=== PATIENT | female | born 1960 | race Caucasian/White ===

== ENCOUNTER 2024-10-03 18:20 | Inpatient (IN) | payer MEDICAID ==
[~2024-10-03] VITALS: Ht 161.3 cm; Wt 67.5 kg
--- NOTE | 2024-10-03 18:48 | Physician Documentation ---
History of Present Illness ~ Chief Complaint: Cold, cough & congestion Stated Complaint: COUGH Time Seen by MD: 19:48 HPI This is a 64-year-old female with history of CABG who presents with proximally 2-3 weeks of persistent chest congestion and cough shortness of breath, patient reports shortness of breath does increase with activity, patient reports that she has been sleeping with extra pillows under head as lying flat causes her cough to worsen. Patient reports that she is a current every day smoker until that she possibly has a emphysema. Patient reports no nasal congestion or fever. Patient also endorses that she has moved here recently from [place] and does not have a doctor. She states she is supposed to be taking Xarelto for history of PE, carvedilol, lisinopril, metformin, Lasix, aspirin 81, Jardiance and also an inhaler for albuterol. She states that she ran out of her medications however her roommate has similar medications so she has been taking them in the meantime. She has no med list and does not know the dosing of her medications. She continues to smoke. She denies chest pain but does state her shortness of breath that has significant to the point where she can not walk from one room to the next. Medication Reconciliation Allergies: Coded Allergies: No Known Allergies (Unverified , 10/03/24) Review of Systems ROS All review of systems negative except as per HPI Physical Exam Vital Signs: Temperature: 97.6, Source: Temporal, Heart Rate: 92, Respiratory Rate: 15, BP: 164/109, Pulse Oximetry: 99, Weight: 67.500 Physical Exam General: Patient is awake, alert, oriented x4 in no acute distress Head: Normocephalic and atraumatic. Eyes: Conjunctival normal. EOMI. PERRL. ENT: Mucous membranes moist. Neck: Supple, trachea is midline. Chest: Clear to auscultation bilaterally without rales, rhonchi, or wheezes. There is no accessory muscle use or retractions. Cardiac: RRR without murmurs, gallops, or rubs. Abd: Soft, nondistended, nontender, with normoactive bowel sounds. No guarding, rebound, or rigidity. Extremities: Normal strength. Normal range of motion. No deformities or edema. Chronic stasis changes noted bilaterally and bypass scar noted in left lower extremity Progress Results/Orders Results/Orders Orders - YEH,MAHAD G MD Heparin 25,000 Unit/250ml Bag (Heparin 2 (10/03/24 20:25) Heparin 10,000 Unit/Ml 1ml (Heparin 10,0 (10/03/24 20:25) Cbc/Diff (10/05/24 03:00) Cbc/Diff (10/06/24 03:00) Cbc/Diff (10/07/24 03:00) Cbc/Diff (10/08/24 03:00) Cta Chest Pe (10/03/24 20:23) Page Hospitalist (10/03/24 20:25) Fill Out Med Reconciliation (10/03/24 20:25) Cardiac Ptt (10/04/24 02:45) Completed Orders - MAHAD YEH MD Pt Inr (10/03/24 20:23) PTT (10/03/24 20:23) Cta Chest Pe (10/03/24 20:23) Heparin 10,000 Unit/Ml 1ml (Heparin 10,0 (10/03/24 20:45) Message To Nursing (10/03/24 20:45) Iohexol 350mg/Ml 100ml (Omnipaque 350mg/ (10/03/24 20:56) Medications Received in ER Medications (Trade) Dose Ordered Sig/Marya Route PRN Reason Start Time Stop Time Status Last Admin Dose Admin Heparin Sodium/ Dextrose 250 ml @ 8 mls/hr [id number] PRN IV TO MAINTAIN PTT WITHIN RANGE 10/03/24 20:25 10/03/24 23:12 8 MLS/HR (heparin 10,000 unit/ml 1ml inj) 4,000 units ONCE ONCE IV 10/03/24 20:45 10/03/24 20:46 DC 10/03/24 23:12 4,000 UNITS Non-Formulary Medication 1 each ONCE ONCE IV 10/03/24 20:45 10/03/24 20:46 DC 10/03/24 20:45 1 EACH Vital Signs 10/03/24 10/03/24 18:41 20:38 Temp 97.6 Pulse 92 92 Resp 15 22 B/P (MAP) 164/109 162/105 (124) Pulse Ox 99 97 O2 Flow Rate 0 Laboratory Tests Test 10/03/24 19:15 10/03/24 20:58 10/03/24 20:59 White Blood Count 8.2 Red Blood Count 5.65 H Hemoglobin 16.4 H Hematocrit 49.2 H Mean Corpuscular Volume 87.0 Mean Corpuscular Hemoglobin 29.0 Mean Corpuscular Hemoglobin Concent 33.3 Red Cell Distribution Width 14.7 H Platelet Count 217 Mean Platelet Volume 9.1 Neutrophils (%) (Auto) 61.8 Lymphocytes (%) (Auto) 23.1 Monocytes (%) (Auto) 11.7 Eosinophils (%) (Auto) 2.6 Basophils (%) (Auto) 0.8 Neutrophils # (Auto) 5.1 Lymphocytes # (Auto) 1.9 Monocytes # (Auto) 1.0 H Eosinophils # (Auto) 0.2 Basophils # (Auto) 0.1 CBC Comment Sodium Level 136 Potassium Level 4.1 Chloride Level 102 Carbon Dioxide Level 26.8 Anion Gap 7 L Blood Urea Nitrogen 14 Creatinine 0.94 H Estimated GFR/1.73 m2 60 BUN/Creatinine Ratio 14.9 Glucose Level 187 H Hemoglobin A1c 9.2 H Calcium Level 9.5 Total Bilirubin 0.7 Aspartate Amino Transf (AST/SGOT) 18 Alanine Aminotransferase (ALT/SGPT) 26 Alkaline Phosphatase 137 H Troponin I High Sensitivity 552 *H Pro-B-Type Natriuretic Peptide 1194 H Total Protein 8.4 H Albumin 3.8 Globulin 4.6 H Albumin/Globulin Ratio 0.8 L Chemistry Comments Prothrombin Time 11.0 INR International Normalized Ratio 1.1 Activated Partial Thromboplast Time 28 Coagulation Comments Magnesium Level 1.8 EKG/XRAY/CT/US/VASC/MRI EKG : Additional Comment EKG interpreted by myself shows time of 184, rate 87, sinus rhythm, normal axis , no ST changes Repeat EKG interpreted by myself shows time of 2016, rate 84, sinus rhythm, normal axis, no ST changes Chest X-Ray : Additional Comments Exam: CHEST,TWO VIEWS CHEST RADIOGRAPH Indication: shortness of breath Technique: Frontal and lateral view of the chest was obtained Comparison: None FINDINGS: Lines and Tubes: AICD Lungs: No pulmonary infiltrates or edema. Pleura: No effusion. No pneumothorax. Cardiomediastinal contours: Mild cardiomegaly. Bones: Unremarkable IMPRESSION: No evidence of acute disease. Mild cardiomegaly. Medical Decision Making Findings MSE performed in triage and patient returned to ED lobby by nursing staff Patient presented to the emergency room with chief complaint of cough. Differentials include but are not limited to viral syndrome, pneumonia, pulmonary embolism, CHF, reflux therefore emergent labs and imaging indicated. Labs show elevated troponins and heparin has been initiated. Given patient's history of pulmonary embolism and noncompliance with Xarelto CTA has been ordered. Initial and repeat EKG shows no ST elevations and no changes. Departure Admitted to Inpatient Unit: yes, to hospitalist Impression: Primary Impression: NSTEMI (non-ST elevated myocardial infarction) Additional Impression: Noncompliance with medications Referrals: NO PRIMARY CARE PROVIDER (PCP) Signature Scribe Signature: No scribe Attestation: The note accurately reflects work and decisions made by me.Mahad Yeh MD 10/04/24 01:56 MARCO FABIAN October 03, 2024 18:48 MAHAD YEH MD October 03, 2024 19:59
--- NOTE | 2024-10-03 18:50 | ELECTROCARDIOGRAPH REPORT ---
[facility] Test Date: 2024-10-03 Test Time: 18:46:43 Pat Name: KYLE MORA Department: [facility]-ER Patient ID: [id number] Room: [place] [address] Gender: F Manager Product: : 1960 Requested By: MARCO FABIAN Order Number: [id number] Reading MD: Dr. Wiley Pugh Measurements Intervals [place] Rate: 87 P: 157 CO: 94 QRS: 24 QRSD: 118 T: 78 QT: 470 QTc: 566 Interpretive Statements Sinus or ectopic atrial rhythm Ventricular premature complex Short CO interval Nonspecific intraventricular conduction delay Inferior infarct, old Abnormal lateral Q waves Probable anteroseptal infarct, recent Baseline wander in lead(s) V3,V4,V5 Electronically Signed On 10-06-2024 11:03:[address] Wiley Pugh Please click the below link to view image of tracing.
--- NOTE | 2024-10-03 19:15 | RADIOLOGY REPORT ---
CHEST RADIOGRAPH Indication: shortness of breath Technique: Frontal and lateral view of the chest was obtained Comparison: None FINDINGS: Lines and Tubes: AICD Lungs: No pulmonary infiltrates or edema. Pleura: No effusion. No pneumothorax. Cardiomediastinal contours: Mild cardiomegaly. Bones: Unremarkable IMPRESSION: No evidence of acute disease. Mild cardiomegaly.
[2024-10-03 19:48] LABS: BASOPHILS # (AUTO) 0.1 X10'3 (0-0.2); BASOPHILS % (AUTO) 0.8 % (0-1); EOSINOPHILS # (AUTO) 0.2 X10'3 (0-0.9); EOSINOPHILS % (AUTO) 2.6 % (0-6); HEMATOCRIT 49.2 % (35.0-45.0); HEMOGLOBIN 16.4 g/dl (12.0-16.0); LYMPHOCYTES # (AUTO) 1.9 X10'3 (1.1-4.8); LYMPHOCYTES % (AUTO) 23.1 % (21-51); MEAN CORPUSCULAR HGB CONC 33.3 g/dL (33.0-36.5); MEAN PLATELET VOLUME 9.1 FL (7.4-10.4); MONOCYTES % (AUTO) 11.7 % (2-12); NEUTROPHILS # (AUTO) 5.1 X10'3 (1.8-7.7); NEUTROPHILS % (AUTO) 61.8 % (42-75); PLATELET COUNT 217 X10'3 (140-440); RED BLOOD COUNT 5.65 X10'6 (4.20-5.60); RED CELL DISTRIBUTION WIDTH 14.7 % (11.5-14.5); WHITE BLOOD COUNT 8.2 X10'3 (4.5-11.0)
[2024-10-03 20:04] LABS: ALANINE AMINOTRANSFERASE 26 U/L (12-78); ALBUMIN 3.8 G/DL (3.4-5.0); ALBUMIN/GLOBULIN RATIO 0.8 (1.1-1.5); ALKALINE PHOSPHATASE 137 IU/L (46-116); ANION GAP 7 (8-16); ASPARTATE AMINO TRANSFERASE 18 U/L (10-37); BILIRUBIN,TOTAL 0.7 MG/DL (0.1-1.0); BLOOD UREA NITROGEN 14 MG/DL (7-18); BUN/CREATININE RATIO 14.9 (10.0-20.0); CALCIUM 9.5 MG/DL (8.5-10.1); CHLORIDE 102 MMOL/L (99-107); CREATININE 0.94 MG/DL (0.40-0.90); GLUCOSE 187 MG/DL (70-104); POTASSIUM 4.1 MMOL/L (3.5-5.1); SODIUM 136 MMOL/L (135-145); TOTAL CARBON DIOXIDE 26.8 MMOL/L (24-32); TOTAL PROTEIN 8.4 G/DL (6.4-8.2); eCRCL 50 ML/MIN; eGFR 60 ML/MIN
[2024-10-03 20:11] LABS: PRO BRAIN NATRIURETIC PEPTIDE 1194 PG/ML (0-125)
[2024-10-03] MEDS ORDERED: heparin 10,000 units/1 ML INJ IV ONE (20:25)
[2024-10-03] MEDS ORDERED: heparin 10,000 units/1 ML INJ IV PRN (20:25)
[2024-10-03] MEDS: MESSAGE TO NURSING IV ONE (20:45)
[2024-10-03] MEDS ORDERED: iohexol 350MG/ML 100ml bottle IV ONE (20:56)
[2024-10-03 21:26] LABS: APTT 28 SECONDS (22-32); INR 1.1 INR
--- NOTE | 2024-10-03 21:43 | RADIOLOGY REPORT ---
CTA Chest with intravenous contrast INDICATION: h/o PE with SOB COMPARISON: None TECHNIQUE: Multidetector spiral CTA of the chest was performed of the chest with intravenous contrast . PULMONARY ANGIOGRAPHY PROTOCOL was utilized using a bolus-tracking technique centered on the main p ulmonary artery. Axial, coronal and sagittal multiplanar and MIP reformats were performed. Radiation Dose : 1. Chest: CTDI volume is mGy. Dose-length product is mGy*cm The dose indicators for CT are the volume Computed Tomography (CT) Dose Index (CTDIvol) and the Dose Length Product (DLP), and are measured in units of mGy and mGy-cm, respectively. These indicators are not patient dose, but values generated from the CT scanner acquisition factors. The report includes radiation exposure data for exposures received during this examination. Findings: Pulmonary artery: No evidence of pulmonary embolism. Lower neck: Unremarkable. Lungs: No focal consolidation. No pulmonary edema. Subsegmental atelectasis noted in the lingula and left lower lobe. Pleura: No pleural effusion or pneumothorax. Heart/Vascular Structures: Mild cardiomegaly. No pericardial effusion. Unremarkable thoracic aorta. A ICD noted Mediastinum / Lymph Nodes: Unremarkable. No lymphadenopathy. Musculoskeletal: No acute osseous abnormality. Soft tissues: Unremarkable. Visualized Upper abdomen: Unremarkable. IMPRESSION: No evidence of pulmonary embolism.
[2024-10-03] MEDS ORDERED: mag hydrox/Alum hydrox/simeth 30ml oral suspension PO PRN (22:10)
[2024-10-03] MEDS ORDERED: magnesium sulf-water 4G/100mL 100 ML IV PRN (22:10)
[2024-10-03] MEDS ORDERED: ondansetron/PF 4mg/2ml inj IV PRN (22:10)
[2024-10-03] MEDS ORDERED: magnesium hydroxide 30ml (MOM) UD suspension PO PRN (22:10)
[2024-10-03] MEDS ORDERED: magnesium sulf-water 2g/50mL 50 ML IV PRN (22:10)
[2024-10-03] MEDS ORDERED: acetaminophen 325mg tablet PO PRN (22:10)
[2024-10-03] MEDS ORDERED: potassium Cl 20 mEq SR tablet PO PRN ×2 (22:10)
[2024-10-03] MEDS ORDERED: magnesium Cl slow-release 64mg tablet PO PRN (22:10)
[2024-10-03] MEDS ORDERED: potassium Cl 40MEQ/1/2NS 520ml 520 ML IV PRN (22:10)
[2024-10-03] MEDS: magnesium sulf-water 2g/50mL 50 ML IV ONE (23:03)
[2024-10-03 23:12] LABS: HEMOGLOBIN A1C 9.2 % (4.5-6.2)
[2024-10-03] MEDS: heparin 25,000 UNIT/250ml bag 250 ML IV PRN (23:12)
[2024-10-03] MEDS: heparin 10,000 units/1 ML INJ IV ONE (23:12)
--- NOTE | 2024-10-04 01:12 | HISTORY AND PHYSICAL-Residence ---
History & Physical Providers to CC Resident Creating Document: KO GANN, LARISSA ~ History of Present Illness Reason for Admit\Complaint: NSTEMI History of Present Illness This is a 64-year-old female with past medical history of DVT, diabetes, history of CABG 10 years ago, history of defibrillator placement 10 years ago, CHF came to the ER with a chief complaint of shortness of breadth. She reports with the shortness of breath increases with activity, she usually sleeps with a pillow. She also has a cough which was ongoing for about a month, not able to cough up the secretions. Denies any fever or nasal congestion. Her friend who she is living with is also sick with cough and cold. Denies chest pain, palpitations, lightheadedness, leg swellings. She moved to [place] about a month ago, was in compliant with her medications. Medications include Xarelto, carvedilol, lisinopril, metformin, aspirin, Jardiance. Patient has been out of these medications, has not been taking Xarelto since February. Allergies: Coded Allergies: No Known Allergies (Unverified , 10/03/24) Past Medical History Past Medical History History of CAD s/p CABG 10 years ago Defibrillator placed 10 years ago Type 2 diabetes mellitus History of DVT Past Surgical History Surgical History Comment History of CABG History of appendicectomy History of C-sections Past Social History Social History Comment She has been smoking since the age of 14 years, smokes about more than half pack a day Denies any history of alcohol use Uses marijuana once in a while Lives with her friend currently, moved to [place] about one month ago ROS Eyes: Denies: no symptoms reported, see HPI, pain, discharge, blurred vision, double vision, itching, photophobia, redness, tearing, other ENT: Denies: no symptoms reported, see HPI, ear pain, ear bleeding, ear discharge, hearing loss, ear ringing, nose pain, nose bleeding, nose congestion, nose discharge, throat pain, throat swelling, voice change, mouth pain, mouth bleeding, mouth swelling, other Respiratory: Reports: cough, shortness of breath Cardiovascular: Denies: no symptoms reported, see HPI, chest pain, left arm pain, diaphoresis, lightheadedness, syncope, edema, palpitations, irregular heart rate, other Gastrointestinal: Denies: no symptoms reported, see HPI, abdomen distended, abdominal pain, nausea, vomiting, diarrhea, constipated, melena, hematemesis, hematochezia, rectal bleeding, rectal pain, dysphagia, poor appetite, poor fluid intake, other Genitourinary: Denies: no symptoms reported, see HPI, burning, discharge, dysuria, frequency, flank pain, hematuria, incontinence, pain, decreased urine output, urgency, other Neurological: Denies: no symptoms reported, see HPI, speech problem, headache, dizziness, fainting, tingling, left sided numbness, right sided numbness, left sided weakness, right sided weakness, problems walking, unable to move lower ext, unable to move upper ext, petit mal seizures, tonic-clonic seizures, cognitive dysfunction, other Exam Vitals: Vital Signs Date Time Temp Pulse Resp B/P (MAP) Pulse Ox O2 Delivery O2 Flow Rate FiO2 10/03/24 21:30 83 18 146/94 (111) 98 10/03/24 20:38 0 10/03/24 18:41 97.6 General: General: Patient is awake, alert, oriented x4 in no acute distress Head: Normocephalic and atraumatic. Eyes: Conjunctival normal. EOMI. PERRL. ENT: Mucous membranes moist. Neck: Supple, trachea is midline. Chest: Clear to auscultation bilaterally without rales, rhonchi, or wheezes. There is no accessory muscle use or retractions. Cardiac: RRR without murmurs, gallops, or rubs. Abd: Soft, nondistended, nontender, with normoactive bowel sounds. No guarding, rebound, or rigidity. Extremities: Normal strength. Normal range of motion. No deformities or edema. Chronic stasis changes noted bilaterally and bypass scar noted in left lower extremity Diagnostic Data Last Recorded Lab Results: 10/03/24191410/03/241914 Diagnostic Data: Laboratory Tests Test 10/03/24 20:58 Prothrombin Time 11.0 SECONDS (9.0-12.0) INR International Normalized Ratio 1.1 INR Activated Partial Thromboplast Time 28 SECONDS (22-32) Coagulation Comments Advance Care Planning Advanced Care plannin - 30 Minutes (I spent 17 minutes in discussing various resuscitative measures, the patient chose to be full code.) Additional Plan Assessment This is a 64-year-old female with past medical history of DVT, CABG, defibrillator placement, came to the ER with a chief complaint of shortness of breaths and cough. Patient has elevated troponins. CTA ruled out pulmonary embolism. Patient is being admitted for NSTEMI. Plan NSTEMI History of CAD s/p CABG and defibrillator placement Patient does not have any chest pain First troponin 552, follow up with 2nd and 3rd troponin Started the patient on heparin drip One dose of has been treated for mg, atorvastatin 40 mg, carvedilol 6.25 mg given. Started the patient on aspirin 81 mg, aspirin atorvastatin 40 mg daily, carvedilol 6.25 mg b.i.d.. Consult project superintendent in the morning Heart healthy diet, NPO from midnight Elevated proBNP ProBNP 1194 Echo ordered Patient's home medication include lisinopril, carvedilol, Jardiance unknown doses Started on carvedilol 6.25 mg b.i.d., lisinopril 5 mg daily, Jardiance 10 mg daily. Prolonged QT interval Potassium, calcium, magnesium in the normal range Patient is not on any medications at causes prolonged QT interval. 2 g of IV magnesium ordered. History of DVT Patient's home medication includes Xarelto which she has not been taking since February CTA chest ruled out pulmonary embolism Bilateral vascular ultrasound ordered. Currently patient is on heparin drip. History of type 2 diabetes mellitus A1c 9.2 Started on Lantus 13 units and high dose insulin protocol Code status: Full DVT prophylaxis: Heparin Diet: Heart healthy diet, NPO from midnight Line/tubes; peripheral IV Status: Guarded Ko Gann M.D PGY1 Date of Service: October 04, 2024 Billing Provider: PK WRIGHT MD, PRAVAHIKA, RES October 04, 2024 01:12
[2024-10-04] MEDS ORDERED: dextrose 50%-water 50ml dispensing syringe IV PRN ×2 (01:45)
[2024-10-04] MEDS ORDERED: glucagon, human recombinant 1mg kit SUBCUT PRN (01:45)
[2024-10-04] MEDS ORDERED: DEXTROSE 15 GM of carb/4 tabs (each vial/BOTTLE has 4 tablets) PO PRN ×2 (01:45)
[2024-10-04] MEDS: aspirin 325mg tablet, delayed-release (Ecotrin) PO ONE (02:31)
[2024-10-04] MEDS: atorvastatin 20mg tablet PO ONE (02:31)
[2024-10-04] MEDS: carVEDilol 3.125mg tablet PO ONE (02:31)
--- NOTE | 2024-10-04 06:08 | ELECTROCARDIOGRAPH REPORT ---
[facility] Test Date: 2024-10-03 Test Time: 20:17:25 Pat Name: KYLE MORA Department: EMERGENCY ROOM Room: [place] [address] Gender: F Tacker Elastic Band: : 1960 Requested By: KO AYALA Order Number: [id number] Reading MD: Dr. Wiley Pugh Measurements Intervals [place] Rate: 84 P: 66 MS: 143 QRS: 33 QRSD: 100 T: 76 QT: 425 QTc: 503 Interpretive Statements Sinus rhythm Probable left atrial enlargement Inferior infarct, old Anterior infarct, old Prolonged QT interval Electronically Signed On 10-06-2024 11:03:[address] Wiley Pugh Please click the below link to view image of tracing.
[2024-10-04] MEDS: K and/or MAG REPLACEMENT MC SCH (06:52)
[2024-10-04] MEDS: docusate sod 100mg capsule PO SCH (06:53)
[2024-10-04] MEDS: aspirin 81mg, enteric-coated 1 TAB TABLET.DR PO SCH (07:07)
[2024-10-04] MEDS: lisinopril 5mg tablet PO SCH (07:07)
[2024-10-04] MEDS: carvedilol 6.25mg tablet PO SCH (07:08)
[2024-10-04] MEDS: EMPAGLIFLOZIN 10 MG TABLET PO SCH (07:08)
[2024-10-04] MEDS: atorvastatin 20mg tablet PO SCH (07:08)
[2024-10-04] MEDS: INSULIN LISPRO 100 UNIT/ML INSULN.PEN MULTI-DOSE SQ SCH (07:38)
[2024-10-04 08:43] LABS: BASOPHILS # (AUTO) 0.1 X10'3 (0-0.2); BASOPHILS % (AUTO) 0.9 % (0-1); EOSINOPHILS # (AUTO) 0.3 X10'3 (0-0.9); EOSINOPHILS % (AUTO) 3.7 % (0-6); HEMOGLOBIN 14.6 g/dl (12.0-16.0); LYMPHOCYTES # (AUTO) 1.9 X10'3 (1.1-4.8); LYMPHOCYTES % (AUTO) 25.8 % (21-51); MEAN CORPUSCULAR HEMOGLOBIN 29.1 PG (27.0-31.0); MEAN CORPUSCULAR HGB CONC 33.3 g/dL (33.0-36.5); MEAN CORPUSCULAR VOLUME 87.4 FL (78-98); MEAN PLATELET VOLUME 9.5 FL (7.4-10.4); MONOCYTES # (AUTO) 0.8 X10'3 (0-0.9); MONOCYTES % (AUTO) 11.5 % (2-12); NEUTROPHILS # (AUTO) 4.2 X10'3 (1.8-7.7); NEUTROPHILS % (AUTO) 58.1 % (42-75); PLATELET COUNT 178 X10'3 (140-440); RED BLOOD COUNT 5.03 X10'6 (4.20-5.60); RED CELL DISTRIBUTION WIDTH 14.8 % (11.5-14.5); WHITE BLOOD COUNT 7.3 X10'3 (4.5-11.0)
[2024-10-04 08:47] LABS: ALANINE AMINOTRANSFERASE 24 U/L (12-78); ALBUMIN/GLOBULIN RATIO 0.8 (1.1-1.5); ALKALINE PHOSPHATASE 110 IU/L (46-116); ANION GAP 7 (8-16); ASPARTATE AMINO TRANSFERASE 21 U/L (10-37); BILIRUBIN,TOTAL 0.6 MG/DL (0.1-1.0); BLOOD UREA NITROGEN 17 MG/DL (7-18); BUN/CREATININE RATIO 18.7 (10.0-20.0); CALCIUM 9.1 MG/DL (8.5-10.1); CHLORIDE 104 MMOL/L (99-107); CHOL/HDL RATIO 5.7 (0.00-4.99); CHOLESTEROL 206 MG/DL (0-200); CREATININE 0.91 MG/DL (0.40-0.90); GLUCOSE 208 MG/DL (70-104); HDL CHOLESTEROL 36 MG/DL (35-60); LDL CHOLESTEROL 143 MG/DL (50-100); MAGNESIUM 1.9 MG/DL (1.5-2.4); POTASSIUM 4.1 MMOL/L (3.5-5.1); SODIUM 136 MMOL/L (135-145); TOTAL CARBON DIOXIDE 24.8 MMOL/L (24-32); TOTAL PROTEIN 6.7 G/DL (6.4-8.2); TRIGLYCERIDES 157 MG/DL (20-135); eCRCL 52 ML/MIN; eGFR 62 ML/MIN
--- NOTE | 2024-10-04 10:13 | VASCULAR REPORT ---
VASC VL VENOUS HISTORY: SOB COMPARISON: None TECHNIQUE: Duplex doppler evaluation of the deep venous system of the lower extremity from the common femoral veins, superficial femoral vein, great saphenous vein, deep femoral vein, popliteal vein, an d calf veins, including color doppler and spectral/pulsed waveform analysis, was performed. FINDINGS: Right: - Common femoral vein: Compressible - Deep femoral vein: Compressible - Femoral vein: Compressible - Popliteal vein: Compressible - Posterior tibial vein: Waveforms present - Peroneal vein: Waveforms present - Other: Nothing Left: - Common femoral vein: Compressible - Deep femoral vein: Compressible - Femoral vein: Compressible - Popliteal vein: Compressible - Posterior tibial vein: Waveforms present - Peroneal vein: Waveforms present - Other: Nothing IMPRESSION: No right or left lower extremity deep venous thrombosis.
[2024-10-04] MEDS ORDERED: heparin 10,000 units/1 ML INJ IV PRN (13:40)
[2024-10-04] MEDS ORDERED: heparin 10,000 units/1 ML INJ IV ONE (13:40)
[2024-10-04] MEDS: COMMUNICATION ORDER 1 EA MISC MC ONE (13:45)
--- NOTE | 2024-10-04 13:58 | CARDIOLOGY REPORT ---
APPROVED REPORT EXAM: Comprehensive 2D, Doppler, and color-flow Echocardiogram. Patient Location: ED11 Heart Rate: 60 bpm Rhythm: NSR Indications NSTEMI CORONARY ARTERY DISEASE HX OF CABG x2 ten years ago [facility] PACER/DEFIBRILLATOR DIABETES MELLITUS FERRY TERMINAL AGENT: Rahul Aguayo DO [facility] PRIOR ECHOCARDIOGRAM: None. 2D Dimensions RVDd 2.7 cm IVSd 1.0 (0.7-1.1cm) LVDd 6.1 cm PWd 0.9 (0.7-1.1cm) IVSs 1.3 (0.8-1.2cm) LVDs 5.2 (2.5-4.0cm) PWs 1.6 (0.8-1.2cm) LVOT Diameter 1.90 (1.8-2.4cm) LVEF(%) 31.1 (>50%) FS (%) 15.0 % SV 59.1 ml CO 11.5 L/min M-Mode Dimensions Left Atrium(MM) 4.90 (2.5-4.0cm) Aortic Root 3.30 (2.2-3.7cm) Aortic Cusp Exc 1.32 (1.5-2.0cm) Aortic Valve AoV Peak Juan David. 118.5 cm/s AoV VTI 24.1 cm AO Peak GR. 5.6 mmHg AO Mean GR. 3 mmHg LVOT VTI 18.47 cm LVOT Peak Juan David. 81.5 cm/s ABDULAZIZ(VTI)/BSA 2.17 cm2/m2 ABDULAZIZ (VTI) 2.17 cm2 Mitral Valve MV E Velocity 91.0 cm/s MV Peak Gr. 6 mmHg MV DECEL TIME 232 ms MV A Velocity 26.6 cm/s MV PHT 72 ms E/A Ratio 3.4 MVA (PHT) 3.06 cm2 MR [id number] cm/s MV UPxi512.0 cm/sMR PG Max94.6 mmHg LEFT VENTRICLE Left ventricle is mildly dilated. There is normal left ventricular wall thickness. The mid to distal LV and apex are severely hypo/akinetic. There is a large apical thrombus present 2.2 x 2.8 cm. LVEF i s 30-35%. RIGHT VENTRICLE The right ventricle is normal size. Pacemaker wire in right heart. ATRIA Left atrium is moderately dilated. AORTIC VALVE Trileaflet AV appears mildly sclerotic without stenosis. No insufficiency. MITRAL VALVE Mitral valve leaflets are mildly thickened without stenosis. Moderate regurgitation. TRICUSPID VALVE The tricuspid valve is normal in structure. Trace tricuspid regurgitation. PULMONIC VALVE Pulmonic valve is not well visualized. GREAT VESSELS Aortic root is normal in size. IVC is not well visualized. PERICARDIUM Normal pericardium. No effusion. Other Information Study Quality: Adequate Conclusion Left ventricle is mildly dilated. There is normal left ventricular wall thickness. The mid to distal LV and apex are severely hypo/akinetic. There is a large apical thrombus present 2.2 x 2.8 cm. LVEF is 30-35%. The right ventricle is normal size. Pacemaker wire in right heart. Left atrium is moderately dilated. Trileaflet AV appears mildly sclerotic without stenosis. No insufficiency. Mitral valve leaflets are mildly thickened without stenosis. Moderate regurgitation. The tricuspid valve is normal in structure. Trace tricuspid regurgitation. Normal pericardium. No effusion.
[2024-10-04 14:24] LABS: BASOPHILS % (AUTO) 0.1 % (0-1); EOSINOPHILS # (AUTO) 0.3 X10'3 (0-0.9); EOSINOPHILS % (AUTO) 3.4 % (0-6); HEMATOCRIT 44.6 % (35.0-45.0); HEMOGLOBIN 15.1 g/dl (12.0-16.0); LYMPHOCYTES # (AUTO) 1.8 X10'3 (1.1-4.8); LYMPHOCYTES % (AUTO) 22.8 % (21-51); MEAN CORPUSCULAR HEMOGLOBIN 29.3 PG (27.0-31.0); MEAN CORPUSCULAR HGB CONC 33.9 g/dL (33.0-36.5); MEAN CORPUSCULAR VOLUME 86.4 FL (78-98); MONOCYTES # (AUTO) 0.7 X10'3 (0-0.9); MONOCYTES % (AUTO) 9.5 % (2-12); NEUTROPHILS % (AUTO) 64.2 % (42-75); PLATELET COUNT 197 X10'3 (140-440); RED BLOOD COUNT 5.15 X10'6 (4.20-5.60); RED CELL DISTRIBUTION WIDTH 14.6 % (11.5-14.5); WHITE BLOOD COUNT 7.8 X10'3 (4.5-11.0)
[2024-10-04 14:39] LABS: APTT 26 SECONDS (22-32); INR 1.1 INR; PROTHROMBIN TIME 10.9 SECONDS (9.0-12.0)
[2024-10-04] MEDS: heparin 25,000 UNIT/250ml bag 250 ML IV PRN (14:54)
[2024-10-04 16:30] VITALS: BP 125/76; PULSE 69; RESP 18; TEMP 98; O2SAT 97
--- NOTE | 2024-10-04 16:51 | PROGRESS NOTE- Residence ---
Progress Note - Resident Providers to CC Resident Creating Document: EMANI FRYE RES ~ Antibiotic Timeout Antibiotic Ordered?: No Subjective Patient is a stay having shortness of breath, 2D echocardiogram found out a huge thrombus at the apex, currently on IV heparin drip. Objective Vital Signs Date Time Temp Pulse Resp B/P (MAP) Pulse Ox O2 Delivery O2 Flow Rate FiO2 10/04/24 14:59 60 17 120/74 (89) 98 0 10/03/24 18:41 97.6 Result Diagram: 10/04/24 1412 10/04/24 0800 Vitals were stable at the moment with IN 72/minute, RR 21/minute, BP 131/70 mm Hg, pulse oximetry 98% on room air. On examination, General: Patient is awake, alert, oriented x4 in no acute distress Head: Normocephalic and atraumatic. Eyes: Conjunctival normal. EOMI. PERRL. ENT: Mucous membranes moist. Neck: Supple, trachea is midline. Chest: Clear to auscultation bilaterally without rales, rhonchi, or wheezes. There is no accessory muscle use or retractions. Cardiac: RRR without murmurs, gallops, or rubs. Abd: Soft, nondistended, nontender, with normoactive bowel sounds. No guarding, rebound, or rigidity. Extremities: Normal strength. Normal range of motion. No deformities or edema. Chronic stasis changes noted bilaterally and bypass scar noted in left lower extremity Coagulation Studies Laboratory Tests Test 10/04/24 10:32 10/04/24 14:12 APTT (Heparin Protocol) 40 SECONDS (45-60) L Prothrombin Time 10.9 SECONDS (9.0-12.0) INR International Normalized Ratio 1.1 INR Activated Partial Thromboplast Time 26 SECONDS (22-32) Coagulation Comments Assessment Assessment This is a 64-year-old female with past medical history of DVT, CABG, defibrillator placement, came to the ER with a chief complaint of shortness of breaths and cough. Patient has elevated troponins. CTA ruled out pulmonary embolism. Patient is being admitted for NSTEMI and found to have a large apical thrombus 2.2 x 2.8cm w/ LVEF 30-35%. Plan Plan # NSTEMI # A large apical thrombus 2.2 x 2.8cm w/ LVEF 30-35% # History of CAD s/p CABG and defibrillator placement 10/04/2024: Consulted w/ Gum Remover Dr Shirley for the mildly elevated trop w/o having EKG changes and CP in the setting of ischcemic Cardiomyopathy, and on Defib. Recommended to zohaib for the elevated proBNP 1194 with IV Lasix 20 mg b.i.d. and GDMT with no IV Heparin. -Found a large apical thrombus in 2D echocardiogram, put the patient back on IV heparin for apical thrombus. -2D echocardiogram showed mid to distal LV and apex are severely hypo/akinetic, large apical thrombus 2.2 x 2.8 cm, LVEF 30-35%, pacemaker wire in right heart, LA moderately dilated, moderate MR, TR, normal pericardium and no effusion. 10/03/2024: Patient does not have any chest pain First troponin 552, follow up with 2nd and 3rd troponin Started the patient on heparin drip One dose of has been treated for mg, atorvastatin 40 mg, carvedilol 6.25 mg given. Started the patient on aspirin 81 mg, aspirin atorvastatin 40 mg daily, carvedilol 6.25 mg b.i.d.. Consult residential air sealing technician in the morning Heart healthy diet, NPO from midnight ProBNP 1194 Echo ordered Patient's home medication include lisinopril, carvedilol, Jardiance unknown doses Started on carvedilol 6.25 mg b.i.d., lisinopril 5 mg daily, Jardiance 10 mg daily. # Prolonged QT interval 10/04/2024: asymptomatic and continue telemetry monitoring, reviewed and avoid using the medications which could prolong QT, mantain and replace K above 4 and Mg above 2 10/03/2024: Potassium, calcium, magnesium in the normal range Patient is not on any medications at causes prolonged QT interval. 2 g of IV magnesium ordered. # History of DVT 10/04/2024: Currently on the IV Heparin for a large heart apical thrombus -bilateral lower extremities vascular ultrasound showed no right or left lower extremities DVT. 10/03/2024: Patient's home medication includes Xarelto which she has not been taking since February CTA chest ruled out pulmonary embolism Bilateral vascular ultrasound ordered. Currently patient is on heparin drip. # History of type 2 diabetes mellitus 10/04/2024: RBS ranging around 200, continue Lantus 30 units and high dose insulin protocol, continuous daily monitoring, targeted hospitalization goal RBS therapy she will be between 140-1 80s 10/03/2024: A1c 9.2 Started on Lantus 13 units and high dose insulin protocol Code status: Full DVT prophylaxis: IV Heparin Diet: Heart healthy diet Line/tubes; peripheral IV Status: Guarded Disposition: Continue medical therapy GDMT, IV heparin, F/up Cardiology consultation, continuous telemetry monitoring, diabetes control, PT eval and DC plan. EMANI FRYE MD Internal Medicine Resident, PGY2 [facility] Date of Service: October 04, 2024 Billing Provider: EDY CHADWICK MD Common Visit Codes: [id number] INP/OBS CARE(HIGH) EMANI FRYE, RES October 04, 2024 16:51 EDY CHADWICK MD October 04, 2024 18:28
[2024-10-04 17:30] VITALS: RESP 17; O2SAT 96
[2024-10-04 18:00] VITALS: BP 122/78; PULSE 62; RESP 16; TEMP 97.4; O2SAT 95
[2024-10-04 20:00] VITALS: RESP 19; O2SAT 96
[2024-10-04] MEDS: furosemide 20 MG/2 ML vial IV SCH (20:41)
[2024-10-04] MEDS: insulin glargine (Lantus) pen - multi-dose SQ SCH (21:37)
[2024-10-04 22:00] VITALS: BP 113/69; PULSE 71; RESP 19; TEMP 97.6; O2SAT 96
[2024-10-05] VITALS (8 sets, daily range): BP systolic 101–124; BP diastolic 59–79; PULSE 56–70; RESP 15–24; TEMP 97.1–97.6; O2SAT 92–98
[2024-10-05 03:24] LABS: BASOPHILS % (AUTO) 0.2 % (0-1); EOSINOPHILS # (AUTO) 0.3 X10'3 (0-0.9); EOSINOPHILS % (AUTO) 3.6 % (0-6); HEMATOCRIT 45.3 % (35.0-45.0); HEMOGLOBIN 15.4 g/dl (12.0-16.0); LYMPHOCYTES # (AUTO) 2.3 X10'3 (1.1-4.8); LYMPHOCYTES % (AUTO) 29.1 % (21-51); MEAN CORPUSCULAR HEMOGLOBIN 29.1 PG (27.0-31.0); MEAN CORPUSCULAR HGB CONC 34.1 g/dL (33.0-36.5); MEAN CORPUSCULAR VOLUME 85.4 FL (78-98); MEAN PLATELET VOLUME 9.2 FL (7.4-10.4); MONOCYTES # (AUTO) 0.8 X10'3 (0-0.9); MONOCYTES % (AUTO) 9.8 % (2-12); NEUTROPHILS # (AUTO) 4.5 X10'3 (1.8-7.7); NEUTROPHILS % (AUTO) 57.3 % (42-75); PLATELET COUNT 192 X10'3 (140-440); RED BLOOD COUNT 5.31 X10'6 (4.20-5.60); RED CELL DISTRIBUTION WIDTH 14.7 % (11.5-14.5); WHITE BLOOD COUNT 7.9 X10'3 (4.5-11.0)
[2024-10-05 03:42] LABS: ALANINE AMINOTRANSFERASE 29 U/L (12-78); ALBUMIN 3.5 G/DL (3.4-5.0); ALBUMIN/GLOBULIN RATIO 0.9 (1.1-1.5); ALKALINE PHOSPHATASE 120 IU/L (46-116); ANION GAP 10 (8-16); ASPARTATE AMINO TRANSFERASE 26 U/L (10-37); BILIRUBIN,TOTAL 0.7 MG/DL (0.1-1.0); BLOOD UREA NITROGEN 22 MG/DL (7-18); BUN/CREATININE RATIO 23.2 (10.0-20.0); CALCIUM 9.2 MG/DL (8.5-10.1); CHLORIDE 102 MMOL/L (99-107); CREATININE 0.95 MG/DL (0.40-0.90); GLUCOSE 161 MG/DL (70-104); SODIUM 138 MMOL/L (135-145); TOTAL CARBON DIOXIDE 25.9 MMOL/L (24-32); TOTAL PROTEIN 7.6 G/DL (6.4-8.2); eCRCL 51 ML/MIN; eGFR 59 ML/MIN
--- NOTE | 2024-10-05 08:24 | ELECTROCARDIOGRAPH REPORT ---
[facility] Test Date: 2024-10-05 Test Time: 07:41:55 Pat Name: KYLE MORA Department: [facility] Room: [place] [address] A Gender: F Cuff Cutter: MAHI : 1960 Requested By: KO AYALA Order Number: [id number] Reading MD: Dr. YANETH Ward Measurements Intervals [place] Rate: 64 P: 88 OR: 99 QRS: 71 QRSD: 110 T: 65 QT: 548 QTc: 566 Interpretive Statements Sinus rhythm Short OR interval Probable left atrial enlargement Left ventricular hypertrophy Probable inferior infarct, old Prolonged QT interval Electronically Signed On 10-05-2024 11:05:[address] YANETH Ward Please click the below link to view image of tracing.
[2024-10-05] MEDS: INSULIN LISPRO 100 UNIT/ML INSULN.PEN MULTI-DOSE SQ SCH (08:27)
[2024-10-05] MEDS: MESSAGE TO NURSING IV ONE ×2 (09:54→16:00)
--- NOTE | 2024-10-05 16:51 | CONSULTATION REPORT ---
History of Present Illness Providers to CC CC: YORDAN CERDA MD ~ Reason for Admit\Admit Dx: Cardiology consultation History of Present Illness This is a 64-year-old female with past medical history significant for coronary artery disease status post two-vessel CABG about 10 years ago, right leg DVT status post thrombectomy versus another procedure. There are large scars on her right calf. Other history diabetes mellitus uncontrolled with hemoglobin A1c 9.2, likely heart failure with reduced ejection fraction and status post defibrillator placement 10 years ago, hypertension, hyperlipidemia. She recently moved to the area from [place] and has not been taking her medications as prescribed since the beginning of the year. She has not been able to establish with a primary care provider. Found to have an LV thrombus on her echocardiogram as well as reduced LVEF at 30-35%. Has been maintained on a heparin drip. Troponins elevated. Patient has presented with chief complaints of significant shortness for breath and dyspnea on exertion. She reports she was unable to walk short distances without feeling short of breath. Was sleeping with an extra pillow at night but denies orthopnea or PND. Denies chest pain or pressure. Reports occasional swelling to her lower extremities. Allergies: Coded Allergies: No Known Allergies (Unverified , 10/03/24) Active prescriptions Insulin Lasix 20 mg IV b.i.d. Heparin drip Jardiance 10 mg daily Lisinopril 5 mg daily Carvedilol 6.25 mg b.i.d. Atorvastatin 40 mg daily Aspirin 81 mg daily Colace 100 mg daily Past Medical History Medical History Comment Coronary artery disease status post two-vessel CABG in or around 2014 in [facility] DVT requiring thrombectomy to the right lower extremity. Previously on Xarelto however not currently taking any anticoagulation Likely ischemic cardiomyopathy status post defibrillator Hypertension Hyperlipidemia Diabetes mellitus type 2 with hemoglobin A1c 9.2 Past Surgical History Surgical History Comment Two-vessel CABG Appendectomy Reports DVT in the right leg that was removed surgically and has scars to her right cath. Thrombectomy versus possible fasciotomy given the appearance of the scars Past Family History Family History: FH: COPD (chronic obstructive pulmonary disease) MOTHER, FH: emphysema MOTHER, Past Social History Social History Comment Current everyday smoker since the age of about 14 smoking a half to 3/4 of a pack daily. No alcohol use. Uses marijuana. Lives in [facility] Physical Exam Last Vital Signs Recorded: RN Vital Signs have been reviewed: Yes, Temperature: 97.3, Source: Oral, Heart Rate: 63, Respiratory Rate: 19, BP: 124/79, Pulse Oximetry: 98, Weight: 67.500 Physical Exam General: Awake, alert, oriented. No apparent distress Neck: Supple. Normal range of motion. No JVD Respiratory: Lungs are clear to auscultation bilaterally. No respiratory distress. Chest: Normal shape and size. No accessory muscle use. Cardiovascular: Regular rate and rhythm. S1-S2. No murmur, gallop, rub. Gastrointestinal: Abdomen is soft. Nontender to palpation. Bowel sounds present. Extremities: No lower extremity edema, cyanosis or clubbing. Scars noted to the cath on the right lower extremity. Neurologic: Alert and oriented x4. Nonfocal Psychiatric: Normal mood and affect. Skin: Normal color. Warm and dry. Review of Systems ROS Patient complained of dyspnea on exertion, congestion. She stated she had a cold for about a month prior to arrival. Sleeping with an additional follow therefore some orthopnea. Denies chest pain or pressure. No dizziness, lightheadedness or syncope. Intermittent lower extremity edema for which she usually takes Lasix. No fevers or chills. Currently, she is without any shortness of breath and is walking around the [place] independently with no symptoms. Was asked, but otherwise denies review of systems. Results EKG EKG Sinus rhythm rate of 64 NH interval is 99 milliseconds poor R-wave progression. Inferior Q-waves. QTC 566 milliseconds. Echocardiogram Echocardiogram Conclusion Left ventricle is mildly dilated. There is normal left ventricular wall thickness. The mid to distal LV and apex are severely hypo/akinetic. There is a large apical thrombus present 2.2 x 2.8 cm. LVEF is 30-35%. The right ventricle is normal size. Pacemaker wire in right heart. Left atrium is moderately dilated. Trileaflet AV appears mildly sclerotic without stenosis. No insufficiency. Mitral valve leaflets are mildly thickened without stenosis. Moderate regurgitation. The tricuspid valve is normal in structure. Trace tricuspid regurgitation. Normal pericardium. No effusion. Dictated by:KRISTAN DOYLE MD Dictation date and time:10/04/24 1357 Diagram Lab Result Diagram: 10/05/24 0310 10/05/24 0310 Assessment/Plan Additional Plan This is a 64-year-old female who presented secondary to shortness for breath. The following is her problem list: Heart failure with reduced ejection fraction, acute on chronic with elevated NT proBNP Suspect ischemic cardiomyopathy given history of coronary artery disease and defibrillator Previously on lisinopril, carvedilol and Jardiance. --recommend transitioning from lisinopril to Entresto after 36 hour washout --continue carvedilol 6.25 mg b.i.d. --continue Jardiance 10 mg daily --if able to tolerate start MRA --receiving IV Lasix 20 mg IV b.i.d.. --recommend strict intake and output measurements be documented NSTEMI History of coronary artery disease status post CABG Suspect troponin elevation secondary to CO type 2 given no chest pain --heparin for 48 hours --no aspirin as she will be on oral anticoagulation LV thrombus TTE demonstrates severe apical hypokinesis with LV thrombus measuring 2.2 x 2.8 cm --continue heparin drip as above for 48 hours --thereafter transitioned to Eliquis --repeat echocardiogram recommended in three months Nonrheumatic mitral regurgitation --she has received IV Lasix and has decreased shortness for breath. History of DVT No current DVT on vascular study --Recommend continue with anticoagulation as above Prolonged QT and short NH --continue with monitoring of electrolytes --continue carvedilol as above --repeat EKG for monitoring Diabetes mellitus type 2, uncontrolled Hemoglobin A1c is 9.2 Risks reviewed --management per hospitalist Case discussed with Dr. Warren Cerda. In agreement with above plan. Supervising MD Supervising Physician: FAYE Hernandez NP October 05, 2024 16:51
[2024-10-05] MEDS ORDERED: RIVA10TA PO (17:01)
[2024-10-05] MEDS ORDERED: METF-436 PO (17:01)
[2024-10-05] MEDS ORDERED: EMPA10TA PO (17:01)
[2024-10-05] MEDS ORDERED: CARV-50 PO (17:01)
[2024-10-05] MEDS ORDERED: ASPI-1265 PO (17:01)
[2024-10-05] MEDS ORDERED: LISI10TA27 PO (17:01)
--- NOTE | 2024-10-05 17:23 | PROGRESS NOTE- Residence ---
Progress Note - Resident Providers to CC Resident Creating Document: EMANI FRYE RES ~ Antibiotic Timeout Antibiotic Ordered?: No Subjective Patient did not complain about any chest pain shortness of breaths at the moment this morning. Patient has a last prop sawyer in [place] before she moved to [place]. Objective Vital Signs Date Time Temp Pulse Resp B/P (MAP) Pulse Ox O2 Delivery O2 Flow Rate FiO2 10/05/24 08:00 19 98 Room Air 10/05/24 07:28 63 10/05/24 06:00 97.3 124/79 (94) 10/04/24 14:59 0 Result Diagram: 10/05/24 0310 10/05/24 0310 Vitals were stable at the moment. On examination, General: Patient is awake, alert, oriented x4 in no acute distress Head: Normocephalic and atraumatic. Eyes: Conjunctival normal. EOMI. PERRL. ENT: Mucous membranes moist. Neck: Supple, trachea is midline. Chest: Clear to auscultation bilaterally without rales, rhonchi, or wheezes. There is no accessory muscle use or retractions. Cardiac: RRR without murmurs, gallops, or rubs. Abd: Soft, nondistended, nontender, with normoactive bowel sounds. No guarding, rebound, or rigidity. Extremities: Normal strength. Normal range of motion. No deformities or edema. Chronic stasis changes noted bilaterally and bypass scar noted in left lower extremity Coagulation Studies Laboratory Tests Test 10/04/24 14:12 10/05/24 15:07 Prothrombin Time 10.9 SECONDS (9.0-12.0) INR International Normalized Ratio 1.1 INR Activated Partial Thromboplast Time 26 SECONDS (22-32) APTT (Heparin Protocol) 68 SECONDS (45-75) Coagulation Comments Assessment Assessment This is a 64-year-old female with past medical history of DVT, CABG, defibrillator placement, came to the ER with a chief complaint of shortness of breaths and cough. Patient has elevated troponins. CTA ruled out pulmonary embolism. Patient is being admitted for NSTEMI and found to have a large apical thrombus 2.2 x 2.8cm w/ LVEF 30-35%. Plan Plan # NSTEMI # Acute on chronic CHFrEF 30-35% exaceration with elevated proBNP # Possible ischemic cardiomyopathy # A large LV apical thrombus 2.2 x 2.8cm w/ LVEF 30-35% # History of CAD s/p CABG and defibrillator placement 10/05/2024: No chest pain was reported. Currently on IV heparin, on-call cardiology team Dr Hoa Cerda was requested for the consultation. -she used to take lisinopril, carvedilol, Jardiance -cardiology recommend to switch from lisinopril to Entresto -continue carvedilol 6.25 b.i.d., Jardiance 10 daily, to start MRA if tolerable, continue IV Lasix 20 b.i.d. -I's and O measure -she will be on Eliquis after IV heparin 40 hours -continue IV LAsix 20 mg BID for her acute on chronic CHFrEF 10/04/2024: Consulted w/ Stop Attacher Dr Shirley for the mildly elevated trop w/o having EKG changes and CP in the setting of ischcemic Cardiomyopathy, and on Defib. Recommended to diruesis for the elevated proBNP 1194 with IV Lasix 20 mg b.i.d. and GDMT with no IV Heparin. -Found a large apical thrombus in 2D echocardiogram, put the patient back on IV heparin for apical thrombus. -2D echocardiogram showed mid to distal LV and apex are severely hypo/akinetic, large apical thrombus 2.2 x 2.8 cm, LVEF 30-35%, pacemaker wire in right heart, LA moderately dilated, moderate MR, TR, normal pericardium and no effusion. 10/03/2024: Patient does not have any chest pain First troponin 552, follow up with 2nd and 3rd troponin Started the patient on heparin drip One dose of has been treated for mg, atorvastatin 40 mg, carvedilol 6.25 mg given. Started the patient on aspirin 81 mg, aspirin atorvastatin 40 mg daily, carvedilol 6.25 mg b.i.d.. Consult prop sawyer in the morning Heart healthy diet, NPO from midnight ProBNP 1194 Echo ordered Patient's home medication include lisinopril, carvedilol, Jardiance unknown doses Started on carvedilol 6.25 mg b.i.d., lisinopril 5 mg daily, Jardiance 10 mg daily. # Prolonged QT interval 10/05/2024: Telemetry monitoring, EKG monitoring, electrolyte monitoring, continue carvedilol 10/04/2024: asymptomatic and continue telemetry monitoring, reviewed and avoid using the medications which could prolong QT, mantain and replace K above 4 and Mg above 2 10/03/2024: Potassium, calcium, magnesium in the normal range Patient is not on any medications at causes prolonged QT interval. 2 g of IV magnesium ordered. # History of DVT 10/05/2024: She will be on Eliquis possibly p.o. 10 mg b.i.d. for seven days followed by 5 mg b.i.d. for at least three months, follow up Cardiology in outpatient setting. should bridge over 2 hrs with DOAC and Heparin 10/04/2024: Currently on the IV Heparin for a large heart apical thrombus -bilateral lower extremities vascular ultrasound showed no right or left lower extremities DVT. 10/03/2024: Patient's home medication includes Xarelto which she has not been taking since February CTA chest ruled out pulmonary embolism Bilateral vascular ultrasound ordered. Currently patient is on heparin drip. # History of type 2 diabetes mellitus 10/05/2024: Continue Lantus and high-dose insulin protocol, targeted goal therapy she will be between 140-1 80s 10/04/2024: RBS ranging around 200, continue Lantus 30 units and high dose insulin protocol, continuous daily monitoring, targeted hospitalization goal RBS therapy she will be between 140-1 80s 10/03/2024: A1c 9.2 Started on Lantus 13 units and high dose insulin protocol Code status: Full DVT prophylaxis: IV Heparin Diet: Heart healthy diet Line/tubes; peripheral IV Status: Guarded Disposition: Continue medical therapy GDMT, IV heparin and switch to p.o. Eliquis, continuous telemetry monitoring, diabetes control, should bridge over 2 hrs with DOAC and Heparin, PT eval and DC plan. Resident MD attestation: Patient was seen, examined and discussed with attending MD, Dr. Tyshawn FRYE MD Internal Medicine Resident, PGY2 [facility] Date of Service: October 05, 2024 Billing Provider: LIANA WILLIS MD Common Visit Codes: [id number] INP/OBS CARE(HIGH) EMANI FRYE RES October 05, 2024 17:23 LIANA WILLIS MD Oct 10, 2024 22:33
[2024-10-05] MEDS: insulin glargine (Lantus) pen - multi-dose SQ SCH (22:39)
[2024-10-06 02:00] VITALS: BP 119/76; PULSE 56; RESP 24; TEMP 97.2; O2SAT 98
[2024-10-06] MEDS ORDERED: heparin 25,000 UNIT/250ml bag 250 ML IV PRN (05:35)
[2024-10-06 06:00] VITALS: BP 113/79; PULSE 63; RESP 18; TEMP 97.7; O2SAT 99
[2024-10-06 07:41] LABS: BASOPHILS # (AUTO) 0.1 X10'3 (0-0.2); BASOPHILS % (AUTO) 0.9 % (0-1); EOSINOPHILS # (AUTO) 0.3 X10'3 (0-0.9); EOSINOPHILS % (AUTO) 3.6 % (0-6); HEMATOCRIT 47.3 % (35.0-45.0); HEMOGLOBIN 16.1 g/dl (12.0-16.0); LYMPHOCYTES % (AUTO) 26.6 % (21-51); MEAN CORPUSCULAR HEMOGLOBIN 29.5 PG (27.0-31.0); MEAN CORPUSCULAR HGB CONC 33.9 g/dL (33.0-36.5); MEAN CORPUSCULAR VOLUME 86.9 FL (78-98); MEAN PLATELET VOLUME 9.7 FL (7.4-10.4); MONOCYTES # (AUTO) 0.8 X10'3 (0-0.9); MONOCYTES % (AUTO) 10.6 % (2-12); NEUTROPHILS # (AUTO) 4.3 X10'3 (1.8-7.7); NEUTROPHILS % (AUTO) 58.3 % (42-75); PLATELET COUNT 212 X10'3 (140-440); RED BLOOD COUNT 5.45 X10'6 (4.20-5.60); RED CELL DISTRIBUTION WIDTH 14.5 % (11.5-14.5); WHITE BLOOD COUNT 7.3 X10'3 (4.5-11.0)
[2024-10-06 08:00] VITALS: RESP 18; O2SAT 97
[2024-10-06 08:23] LABS: ALANINE AMINOTRANSFERASE 31 U/L (12-78); ALBUMIN 3.7 G/DL (3.4-5.0); ALBUMIN/GLOBULIN RATIO 0.9 (1.1-1.5); ALKALINE PHOSPHATASE 121 IU/L (46-116); ANION GAP 12 (8-16); ASPARTATE AMINO TRANSFERASE 30 U/L (10-37); BILIRUBIN,TOTAL 0.6 MG/DL (0.1-1.0); BLOOD UREA NITROGEN 27 MG/DL (7-18); BUN/CREATININE RATIO 23.9 (10.0-20.0); CALCIUM 9.2 MG/DL (8.5-10.1); CHLORIDE 100 MMOL/L (99-107); CREATININE 1.13 MG/DL (0.40-0.90); GLUCOSE 167 MG/DL (70-104); MAGNESIUM 2.2 MG/DL (1.5-2.4); POTASSIUM 3.7 MMOL/L (3.5-5.1); SODIUM 138 MMOL/L (135-145); TOTAL CARBON DIOXIDE 26.3 MMOL/L (24-32); eCRCL 43 ML/MIN; eGFR 48 ML/MIN
[2024-10-06] MEDS ORDERED: SPIR25TA PO (10:27)
[2024-10-06] MEDS ORDERED: APIX5TAB3 PO (10:27)
[2024-10-06] MEDS ORDERED: SACU1TAB PO (10:27)
[2024-10-06] MEDS ORDERED: LANTUS SQ (10:27)
[2024-10-06] MEDS: apixaban 5mg tablet PO SCH (10:46)
[2024-10-06 11:00] VITALS: BP 114/73; PULSE 65; RESP 17; TEMP 98; O2SAT 98
[2024-10-06] MEDS ORDERED: LANC1COM7 (13:50)
[2024-10-06] MEDS ORDERED: BLOO1EAC70 MC (13:50)
[2024-10-06] MEDS ORDERED: sacubitril/valsartan 24mg-26mg tablet PO SCH (20:00)
--- NOTE | 2024-10-10 12:37 | DISCHARGE SUMMARY-Residence ---
Discharge Summary Providers to CC Resident Creating Document: FERNANDEZLARISSA GALLEGO ~ Discharge Summary Admission Diagnosis: NSTEMI Hospital Course DATE OF ADMISSION: 10/03/2024 DATE OF DISCHARGE: 10/06/2024 Discharge Diagnosis\Comment: NSTEMI Acute on chronic heart failure with reduced ejection fraction Large left ventricle apical thrombus- 2.2 x 2.8 cm History of CAD status post CABG and defibrillator placement Prolonged QT interval; asymptomatic- monitored on telemetry History of DVT; noncompliance with medication Uncontrolled type 2 diabetes mellitus Operations\Procedures: None Consultants: None Complications: Cardiology- Dr. Cerda Condition on DC: Stable for transfer New Medications: Blood-Glucose Meter (Blood Glucose Meter) 1 Each Each EACH , #1 Lancets/Blood Glucose Strips (Lancet 30G-Glucose Test Strip) 30 Gauge Combo..pkg BOXS, #1 Spironolactone (Aldactone) 25 Mg Tablet 1 TAB PO DAILY for 30 Days, #30 TAB 0 Refills Apixaban (Eliquis) 5 Mg Tablet 5 MG PO BID, #60 TAB Insulin Glargine,Hum.rec.anlog* (Lantus*) 100 Unit/1 Ml Vial 15 UNIT SQ HS, #1 VIAL Sacubitril/Valsartan (Entresto 24 mg-26 mg Tablet) 24 Mg-26 Mg Tablet 1 TABLET PO BID, #60 TAB Continued Medications: Aspirin (Aspirin) 81 Mg Tab.chew 1 TAB PO DAILY for 30 Days, #30 TAB Carvedilol* (Coreg*) 12.5 Mg Tablet 1 TAB PO Q12H for 30 Days, #60 TAB Empagliflozin (Jardiance) 10 Mg Tablet 1 TAB PO DAILY for 30 Days, #30 TAB 0 Refills Discontinued Medications: Lisinopril (Lisinopril) 10 Mg Tablet 1 TAB PO DAILY for 30 Days, #30 TAB 0 Refills Metformin Hcl (Metformin Hcl) 500 Mg Tablet 1 TAB PO Q12H for 30 Days, #60 TAB 0 Refills Rivaroxaban (Xarelto) 10 Mg Tablet 1 TAB PO DAILY for 7 Days, #7 TAB 0 Refills Discharge Summary: This is a 64-year-old female with past medical history of DVT, CABG, defibrillator placement, came to the ER with a chief complaint of shortness of breaths and cough. Admission troponins were elevated. CTA ruled out pulmonary embolism. Patient was being admitted for NSTEMI and also incidentally found to have a large apical thrombus 2.2 x 2.8cm w/ LVEF 30-35% with defibrillator in- situ. Patient was started on heparin drip for the NSTEMI. However, EKG revealed no acute abnormalities, telemetry also revealed no significant findings. An echocardiogram performed revealed mid to distal LV and apical severe hypokinetic area. Cardiology was consulted. In view of the ischemic cardiomyopathy leading to heart failure with reduced EF, they had recommended to diurese the patient with 20 mg Lasix b.i.d. and to continue GDM T. no further evaluation from Cardiology was pursued as the patient had no chest pain and mildly elevated troponins, the heparin drip was continued for 48 hours and discontinued after switching the patient to oral anticoagulation. Modification of GDM T was done were lisinopril was switched to Entresto after 36 hours of washout. . The rest of the medications were continued as it is. Strict I&O monitoring was performed. In terms of the left ventricle thrombus, alongside the heparin, the Cardiology team recommended to continue the Eliquis and follow up for a repeat echocardiogram in three months. Rest of her chronic medical conditions of uncontrolled type 2 diabetes mellitus was managed by the hyperglycemia/hypoglycemia protocol. After clearance from Cardiology and shortness of Breath improving with diuresis, the patient was discharged back home. Advised at discharge: Take all your medications indicated. It is very crucial that you maintain compliance with your anticoagulation to prevent life-threatening complications. Kindly follow up with the wad printing machine operator within 1-2 weeks. Follow up with the primary care provider in 1-2 weeks and repeat a CBC and CMP as well. If you have recurrence of symptoms or worsening of symptoms, kindly returned back to the nearest ER. Physical exam at discharge: General: Patient is awake, alert, oriented x4 in no acute distress Head: Normocephalic and atraumatic. Eyes: Conjunctival normal. EOMI. PERRL. ENT: Mucous membranes moist. Neck: Supple, trachea is midline. Chest: Clear to auscultation bilaterally without rales, rhonchi, or wheezes. There is no accessory muscle use or retractions. Cardiac: RRR without murmurs, gallops, or rubs. Abd: Soft, nondistended, nontender, with normoactive bowel sounds. No guarding, rebound, or rigidity. Extremities: Normal strength. Normal range of motion. No deformities or edema. Chronic stasis changes noted bilaterally and bypass scar noted in left lower extremity Labs at discharge: WBC 7.3, RBC 5.4, hemoglobin 16.1, platelets 212 Sodium 138, potassium 3.7, chloride 100, bicarb 26.3, BUN 27, creatinine 1.1, blood glucose 167 Medications at discharge: Eliquis 5 mg b.i.d., Lantus, Entresto 24 mg-26 mg, Aldactone 25 mg daily, aspirin, Coreg 12.5 mg b.i.d., Jardiance 10 mg daily. Stopped lisinopril and metformin *Problems/Diagnosis: (1) NSTEMI (non-ST elevated myocardial infarction) Status: Acute (2) Noncompliance with medications Status: Acute Total Time Spent on D/C: Up to 30 Minutes Counseling Services Smoking & Tobacco Cessation: 3-10 Minutes Date of Service: October 06, 2024 Billing Provider: LIANA WILLIS MD Common Visit Codes: [id number]/[id number] DISCH DAY >30min LASHONDA PRESLEY, RES Oct 10, 2024 11:41 LIANA WILLIS MD Oct 10, 2024 22:32
== END 2024-10-06 14:02 | disposition home or self-care (01) | DRG 190 ==
LOC: ER 18:22 → ED HOLD 20:59 → PCU 3S 10-04 16:28
PROVIDERS: ADMIT Internal Medicine Sleep Medicine; ATTEND Internal Medicine
PROC: B32T1ZZ Computerized Tomography (CT Scan) of Left Pulmonary Artery using Low Osmolar Contrast (ICD-10-PCS; principal; 2024-10-03)
PROC: B3201ZZ Computerized Tomography (CT Scan) of Thoracic Aorta using Low Osmolar Contrast (ICD-10-PCS; 2024-10-03)
PROC: B32S1ZZ Computerized Tomography (CT Scan) of Right Pulmonary Artery using Low Osmolar Contrast (ICD-10-PCS; 2024-10-03)
DX: I21.4 Non-ST elevation (NSTEMI) myocardial infarction (principal); I50.23 Acute on chronic systolic (congestive) heart failure; E11.65 Type 2 diabetes mellitus with hyperglycemia; Z95.1 Presence of aortocoronary bypass graft; I11.0 Hypertensive heart disease with heart failure; I25.10 Atherosclerotic heart disease of native coronary artery without angina pectoris; E78.5 Hyperlipidemia, unspecified; Z20.822 Contact with and (suspected) exposure to COVID-19; I25.5 Ischemic cardiomyopathy; I34.0 Nonrheumatic mitral (valve) insufficiency; F17.210 Nicotine dependence, cigarettes, uncomplicated; Z86.718 Personal history of other venous thrombosis and embolism; Z91.148 Patient's other noncompliance with medication regimen for other reason; Z90.49 Acquired absence of other specified parts of digestive tract; Z98.891 History of uterine scar from previous surgery; Z82.5 Family history of asthma and other chronic lower respiratory diseases
CPT/HCPCS: 36415; 71046; 71275; 80053; 80061; 82948; 83036; 83735; 83880; 84484; 85025; 85610; 85730; 87081; 87811; 93005; 93306; 93970; 96365; 96368; 96375; 99285; G0378; J1644; J1815; J1938; Q9967